=== PATIENT | female | born 1965 | race American Indian/Alaskan Native ===

== ENCOUNTER 2017-02-01 22:47 | Emergency (ER) | payer SELFPAY ==
[2017-02-02 00:21] LABS: Basophils % (Auto) 0.3 % (0.0-1.8); Eosinophils % (Auto) 1.8 % (0.0-4.3); Hematocrit 39.4 % (30.3-42.9); Hemoglobin 12.9 gm/dl (10.1-14.3); Mean Corpuscular HGB Conc 33 % (30-34); Mean Corpuscular Hemoglobin 27 pg (28-32); Mean Corpuscular Volume 83 fl (79-97); Platelet Count 362 K/mm3 (140-440); Red Blood Count 4.73 M/mm3 (3.65-5.03); Red Cell Distribution Width 14.8 % (13.2-15.2); White Blood Count 8.7 K/mm3 (4.5-11.0)
[2017-02-02 00:25] LABS: Anion Gap 17 mmol/L; BUN/Creatinine Ratio 15; Blood Urea Nitrogen 12 mg/dL (7-17); Calcium 9.3 mg/dL (8.4-10.2); Carbon Dioxide 25 mmol/L (22-30); Chloride 104.3 mmol/L (98-107); Glucose 106 mg/dL (65-100); Potassium 4.3 mmol/L (3.6-5.0); Sodium 142 mmol/L (137-145)
--- NOTE | 2017-02-02 04:57 | Emergency Department Report ---
ED Chest Pain HPI - General Chief Complaint: Chest Pain Stated Complaint: CHEST PAIN Time Seen by Provider: 02/02/17 04:47 Source: patient Mode of arrival: Ambulatory Limitations: No Limitations - History of Present Illness Initial Comments: Patient is 51 years old female history of high blood pressure presented with a 3 weeks history of diffuse chest pain sharp in nature associated with cough, initially productive with greenish sputum but now is dry. Patient denied any shortness of breath: No fever, no nausea no vomiting. MD Complaint: chest pain -: week(s) Onset: during rest Pain Location: other (diffuse) Severity scale (0 -10): 7 Quality: sharp Consistency: intermittent Other Symptoms: cough - Related Data Home Medications Medication Instructions Recorded Confirmed Last Taken Hydrochlorothiazide 25 mg PO DAILY 05/05/14 05/05/14 Unknown Previous Rx's Medication Instructions Recorded Last Taken Type Cephalexin [Keflex] 500 mg PO BID #14 capsule 05/05/14 Unknown Rx Furosemide [Lasix TAB] 20 mg PO QDAY #5 tablet 05/05/14 Unknown Rx ALBUTEROL Inhaler [ProAir HFA 2 puff IH QID PRN #1 inhalation 02/02/17 Unknown Rx Inhaler] Azithromycin [Zithromax Z-GRAY] 250 mg PO DAILY 1 Days tab 02/02/17 Unknown Rx guaiFENesin/CODEINE [Robitussin AC] 10 ml PO TID PRN #100 ml 02/02/17 Unknown Rx Allergies Allergy/AdvReac Type Severity Reaction Status Date / Time No Known Allergies Allergy Unverified 05/05/14 01:20 Heart Score - HEART Score History: Moderately suspicious EKG: Normal Age: 45-65 Risk factors: 1-2 risk factors Troponin: < normal limit HEART Score: 3 - Critical Actions Critical Actions: 0-3 pts:0.9-1.7%risk of adverse cardiac event.Candidate for discharge ED Review of Systems ROS: Stated complaint: CHEST PAIN Other details as noted in HPI Comment: All other systems reviewed and negative Constitutional: denies: chills, fever Respiratory: cough. denies: orthopnea, shortness of breath, SOB with exertion, SOB at rest Cardiovascular: chest pain. denies: palpitations, dyspnea on exertion, edema Gastrointestinal: denies: abdominal pain, nausea, vomiting, diarrhea, constipation, hematemesis, melena, hematochezia Musculoskeletal: denies: back pain, joint swelling Neurological: denies: headache, weakness, numbness, paresthesias ED Past Medical Hx - Past Medical History Previous Medical History?: Yes Hx Hypertension: Yes - Surgical History Additional Surgical History: partial hysterectomy, plate in left arm - Social History Smoking Status: Never Smoker Substance Use Type: None - Medications Home Medications: Home Medications Medication Instructions Recorded Confirmed Last Taken Type Cephalexin [Keflex] 500 mg PO BID #14 capsule 05/05/14 Unknown Rx Furosemide [Lasix TAB] 20 mg PO QDAY #5 tablet 05/05/14 Unknown Rx Hydrochlorothiazide 25 mg PO DAILY 05/05/14 05/05/14 Unknown History ALBUTEROL Inhaler [ProAir HFA 2 puff IH QID PRN #1 inhalation 02/02/17 Unknown Rx Inhaler] Azithromycin [Zithromax Z-GRAY] 250 mg PO DAILY 1 Days tab 02/02/17 Unknown Rx guaiFENesin/CODEINE [Robitussin AC] 10 ml PO TID PRN #100 ml 02/02/17 Unknown Rx ED Physical Exam - General Limitations: No Limitations General appearance: alert, in no apparent distress - Head Head exam: Present: atraumatic - Eye Eye exam: Present: normal appearance - ENT ENT exam: Present: normal exam - Neck Neck exam: Present: normal inspection, full ROM - Respiratory Respiratory exam: Present: normal lung sounds bilaterally, decreased breath sounds, prolonged expiratory. Absent: respiratory distress, wheezes, rales, rhonchi, chest wall tenderness, accessory muscle use - Cardiovascular Cardiovascular Exam: Present: regular rate, normal rhythm, normal heart sounds - GI/Abdominal GI/Abdominal exam: Present: soft, normal bowel sounds. Absent: distended, tenderness, guarding, rebound, rigid, organomegaly, mass, bruit, pulsatile mass , hernia - Extremities Exam Extremities exam: Present: normal inspection, full ROM, normal capillary refill. Absent: pedal edema - Back Exam Back exam: Present: normal inspection. Absent: CVA tenderness (R), CVA tenderness (L), muscle spasm - Neurological Exam Neurological exam: Present: alert, oriented X3, CN II-XII intact, normal gait - Skin Skin exam: Present: warm, intact, normal color ED Course Vital Signs 02/01/17 02/01/17 02/02/17 22:56 23:23 02:17 Temperature 98.3 F 98.3 F Pulse Rate 106 H 106 H 116 H Respiratory 18 17 17 Rate Blood Pressure 142/93 142/93 Blood Pressure [Left] O2 Sat by Pulse 97 99 Oximetry 02/02/17 02/02/17 02/02/17 02:19 02:30 02:45 Temperature 98.0 F Pulse Rate 96 H 100 H 90 Respiratory 20 13 13 Rate Blood Pressure 140/95 140/95 Blood Pressure 140/95 [Left] O2 Sat by Pulse 100 100 90 Oximetry 02/02/17 02/02/17 02/02/17 03:00 03:23 03:30 Temperature Pulse Rate 86 Respiratory 14 20 Rate Blood Pressure 115/78 115/78 Blood Pressure [Left] O2 Sat by Pulse 97 100 Oximetry 02/02/17 02/02/17 02/02/17 03:31 03:45 04:00 Temperature Pulse Rate 90 107 H 87 Respiratory 13 13 13 Rate Blood Pressure 115/78 115/78 118/75 Blood Pressure [Left] O2 Sat by Pulse 100 100 100 Oximetry 02/02/17 02/02/17 02/02/17 04:15 04:31 04:45 Temperature Pulse Rate 91 H 83 99 H Respiratory 19 13 16 Rate Blood Pressure 118/75 118/75 118/75 Blood Pressure [Left] O2 Sat by Pulse 100 100 100 Oximetry 02/02/17 05:00 Temperature Pulse Rate 90 Respiratory 17 Rate Blood Pressure 141/81 Blood Pressure [Left] O2 Sat by Pulse 100 Oximetry ED Medical Decision Making - Lab Data Result diagrams: 02/01/17 23:47 02/01/17 23:47 - EKG Data -: EKG Interpreted by Me EKG shows normal: sinus rhythm Rate: normal - EKG Data Interpretation: no acute changes - Radiology Data Radiology results: image reviewed interpreted by me: Chest x-ray showed no acute findings Critical care attestation.: If time is entered above; I have spent that time in minutes in the direct care of this critically ill patient, excluding procedure time. ED Disposition Clinical Impression: Chest pain, Acute bronchitis Disposition: DC-01 TO HOME OR SELFCARE Is pt being admited?: No Condition: Stable Instructions: Chest Pain (ED), Acute Bronchitis (ED) Prescriptions: ALBUTEROL Inhaler [ProAir HFA Inhaler] 2 puff IH QID PRN #1 inhalation PRN Reason: Shortness Of Breath Azithromycin [Zithromax Z-GRAY] 250 mg PO DAILY 1 Days tab guaiFENesin/CODEINE [Robitussin AC] 10 ml PO TID PRN #100 ml PRN Reason: Cough Referrals: RINKU LOPEZ MD [Primary Care Provider] - 3-5 Days
[2017-02-02 05:06] VITALS: BP 141/81
--- NOTE | 2017-02-02 09:10 | XRay Report ---
ROUTINE CHEST, TWO VIEWS: HISTORY: Cough. The trachea, heart, mediastinal contour, lung babb and bony thorax are unremarkable. IMPRESSION: Unremarkable chest x-ray.
== END 2017-02-02 05:10 | disposition home or self-care (01) ==
LOC: ED 22:47
DX: J20.9 Acute bronchitis, unspecified (principal); I10 Essential (primary) hypertension; Z90.711 Acquired absence of uterus with remaining cervical stump
CPT/HCPCS: 36415; 71020; 80048; 84484; 85025; 93005; 93010; 99284